=== PATIENT | female | born 1960 | race Caucasian/White ===

== ENCOUNTER 2017-10-29 17:36 | Emergency (ER) | payer OTHER | END 2017-10-29 20:05 | disposition home or self-care (01) | LOC: FTE 17:36 | DX: L60.0 Ingrowing nail (principal); I10 Essential (primary) hypertension; E11.9 Type 2 diabetes mellitus without complications; Z79.84 Long term (current) use of oral hypoglycemic drugs | CPT/HCPCS: 99283; Z7502 ==

== ENCOUNTER 2019-01-16 15:10 | Emergency (ER) | payer SELFPAY, OTHER ==
[2019-01-16] MEDS ORDERED: ACETAMINOPHEN 500 MG TAB PO (15:31)
[2019-01-16] MEDS: LIDOCAINE 1% (MDV) 20 ML INJ SC (15:38)
[2019-01-16] MEDS: ACETAMINOPHEN 325 MG TAB PO (15:39)
== END 2019-01-16 16:36 | disposition home or self-care (01) ==
LOC: FTE 15:10
DX: L60.0 Ingrowing nail (principal); I10 Essential (primary) hypertension; E11.9 Type 2 diabetes mellitus without complications; Z79.84 Long term (current) use of oral hypoglycemic drugs
CPT/HCPCS: 11765; 99283-25